=== PATIENT | male | born 1965 | race Caucasian/White ===

== ENCOUNTER 2019-01-27 19:13 | Emergency (ER) | payer OTHER, SELFPAY ==
[2019-01-27 19:14] VITALS: BP 154/97; PULSE 70; RESP 16; TEMP 37.1; O2SAT 99; BMI 27.1
--- NOTE | 2019-01-27 19:34 | ED.VIS.UPPEX ---
History of Present Illness Chief Complaint: Laceration Informant: Patient Occurred: Today Onset: Today Current Severity: Mild Maximum Severity: Mild Associated Symptoms: Negative for: Parasthesia, Weakness Narrative: Patient was cutting firewood today when a piece of wood came back and hit his left fifth finger. He has a laceration on the ulnar side of the finger. Last tetanus update was in 2018. He is right-hand dominant. Past Medical History - Allergies and Home Meds Allergies/Adverse Reactions: Allergies No Known Allergies Allergy (Verified 10/08/15 13:37) Primary Care Physician: Sean Aceves MD [Primary Care Provider] - Prior records reviewed: Yes Past Medical History: - - Reviewed Lives: With Family Smoking Status: Former smoker Review of Systems General: Denies: Chills, Fever Eyes: Denies: Visual changes - bilaterally ENT: Denies: Bilateral ear pain Cardiovascular: Denies: Chest pain Respiratory: Denies: Dyspnea Gastrointestinal: Denies: Abdominal pain Musculoskeletal: Reports: Extremity Pain Skin: Reports: Wounds Physical Exam Vital Signs/Narrative: Vital Signs Temp Pulse Resp BP Pulse Ox 01/27/19 19:14 98.8 F 70 16 154/97 H 99 Inital Vital Signs reviewed: Yes Left Hand: - - 2.5 cm laceration noted to the ulnar side of the left fifth finger. Bleeding is controlled. He has full range of motion. Normal cap refill distally. General: Well nourished, Well developed Head: Normocephalic ENT: No Trauma Neck: Nontender Cardiovascular: Regular rate, Regular rhythm Respiratory: No distress, CTA bilaterally Abdomen: Soft, Nontender Skin: - - Laceration as above Neurological: Alert, Oriented x3, Normal Strength, Normal Sensation Psychological: Normal affect Diagnostic/Tx/Re-eval - Medical Decision Making Left finger was anesthetized with 3 cc of 1% lidocaine. Wound was cleansed and irrigated. 8 simple interrupted sutures of 5-0 nylon are placed. Wound dressing is placed and he is advised to have sutures removed in 1 week. Procedures - Lacerations No standard instances Length: 0.98 in Depth: Sub Q Prep: Silverure-Clege Number of Sutures/Joseph: 8 Suture Information: Simple, 5-0 Disposition: Home ED Disposition - Plan for ED Patient: Disposition: Home or Assisted Living Diagnosis: Finger laceration Instructions: LACERATION, Hand Referrals: Sean Aceves MD [Primary Care Provider] - 7 Days for suture removal
[2019-01-27 20:32] VITALS: BP 143/78; PULSE 68; RESP 16; O2SAT 100
== END 2019-01-27 20:33 | disposition home or self-care (01) ==
PROVIDERS: Emergency Provider Emergency Medicine; Family Provider Family Medicine; PCP Family Medicine
DX: S61.217A Laceration without foreign body of left little finger without damage to nail, initial encounter (principal); W22.8XXA Striking against or struck by other objects, initial encounter; Y92.9 Unspecified place or not applicable; Y99.9 Unspecified external cause status; Z87.891 Personal history of nicotine dependence
CPT/HCPCS: 12001; 99284